=== PATIENT | male | born 1965 | race African-American/Black ===

== ENCOUNTER → 2017-05-02 | Outpatient (CLI) | payer OTHER ==
--- NOTE | 2017-05-03 11:51 | PULMONARY FUNCTION TEST ---
DATE OF SERVICE: 05/02/2017 THE DLCO IS 11.7, 53% OF PREDICTED. IMPRESSION: MODERATELY DECREASED DIFFUSING CAPACITY. CC: CATHY HONG MD > CHEIKH
== END ==
LOC: RT 13:06
PROVIDERS: ATTEND Thoracic Surgery (Cardiothoracic Vascular Surgery)
DX: C34.12 Malignant neoplasm of upper lobe, left bronchus or lung (principal)
CPT/HCPCS: 94729

== ENCOUNTER → 2018-04-03 | Outpatient (CLI) | payer MEDICARE ==
--- NOTE | 2018-04-04 07:31 | RADIOLOGY REPORT (SQ) ---
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 Images reviewed with lung, soft tissue and bone windows. Reconstructed coronal and sagittal MPR images reviewed. All images st ored on PACS. All CT scanners at this facility use dose modulation, iterative reconstruction, and/or weight based d osing when appropriate to reduce radiation dose to as low as reasonably achievable (ALARA). [facility]: Dose Right [facility]: CareDose [facility]: Dose Right [facility]: Teradose 4D [facility]: Bomboard RADIATION DOSE: CT Rad equipment meets quality standard of care and radiation dose reduction techniq ues were employed. CTDIvol: 4.8 mGy. DLP: 188 mGy-cm. mGy. LIMITATIONS: No technical limitations. FINDINGS: LUNGS AND PLEURA: Extensive chronic postinflammatory changes are present bilaterally. The re is extensive bronchiectasis and volume loss in the right upper lobe, and diffuse peripheral lung p arenchymal scarring with areas of honeycombing. Patient is post left thoracotomy with lung resection s enzo at the left lung apex. Appearance is similar compared to 05/23/2013. No pneumothorax. No pleural effusion. No new infiltrates. HILAR AND MEDIASTINAL STRUCTURES: Distorted from bronchiectasis and scarring. No adenopathy. HEART AND VASCULAR STRUCTURES: No aneurysm. No pericardial effusion. UPPER ABDOMEN: No significant findings. Limited exam. THYROID AND OTHER SOFT TISSUES: No masses. No adenopathy. BONES: No significant finding. HARDWARE: None in the chest. OTHER: No other significant findings. IMPRESSION: Stable appearance of the chest compared 05/23/2013 TECHNICAL DOCUMENTATION: JOB ID: [id number] Quality ID # [id number]: Final reports with documentation of one or more dose reduction techniques (e.g., Au tomated exposure control, adjustment of the mA and/or kV according to patient size, use of iterative reconstruction technique) 2010 [email or web address]- All Rights Reserved Reading location - IP/workstation name: [email or web address]
== END ==
LOC: RAD 10:48
PROVIDERS: ATTEND Internal Medicine Critical Care Medicine
DX: D86.0 Sarcoidosis of lung (principal)
CPT/HCPCS: 71250